=== PATIENT | female | born 1955 | race Asian ===

== ENCOUNTER 2017-10-27 06:19 | Day surgery (SDC) | payer OTHER ==
[2017-10-27] MEDS: BUPIVACAINE 0.25% (MPF) 30 ML INJ INJ
[2017-10-27] MEDS ORDERED: CEFAZOLIN 2 GM/50 ML (PMX) 50 ML IVPB (07:00)
[2017-10-27] MEDS ORDERED: PROPOFOL 200 MG INJ (07:00)
[2017-10-27] MEDS ORDERED: SOD CHLORIDE 0.9% 1,000 ML IV (07:00)
[2017-10-27] MEDS ORDERED: FENTAnyl 50 MCG/ML VIAL IV ×2 (09:00)
[2017-10-27] MEDS ORDERED: DIPHENHYDRAMINE 50 MG INJ IV (09:00)
[2017-10-27] MEDS ORDERED: ONDANSETRON 4 MG INJ IV (09:00)
[2017-10-27] MEDS ORDERED: HYDROmorphONE 1 MG/5 ML IV SYRINGE IV ×2 (09:00)
[2017-10-27] MEDS ORDERED: MEPERIDINE 25 MG INJ IV (09:00)
[2017-10-27] MEDS ORDERED: ALBUTEROL 0.083% (NEB) 2.5 MG/3 ML AMP HHN (09:00)
[2017-10-27] MEDS ORDERED: ROPIVACAINE 0.5 % 30 ML VIAL (09:20)
[2017-10-27] MEDS ORDERED: FENTAnyl 50 MCG/ML VIAL (09:20)
[2017-10-27] MEDS ORDERED: CEFAZOLIN 1 GM INJ (10:05)
[2017-10-27] MEDS ORDERED: SUCCINYLCHOLINE CHLORIDE 100 MG/5 ML SYG IV (10:05)
[2017-10-27] MEDS ORDERED: PROPOFOL 20 ML (10:05)
[2017-10-27] MEDS ORDERED: LIDOCAINE 100 MG SYRINGE (10:05)
[2017-10-27] MEDS ORDERED: SUGAMMADEX SODIUM 200 MG/2 ML VIAL IV (10:05)
[2017-10-27] MEDS ORDERED: ROCURONIUM 50 MG INJ (10:05)
[2017-10-27] MEDS: METOCLOPRAMIDE 10 MG INJ IV (10:53)
[2017-10-27] MEDS: HYDROmorphONE 1 MG/5 ML IV SYRINGE IV (10:54)
[2017-10-27] MEDS: HYDROCODONE/APAP (5/325) TAB PO (12:33)
== END 2017-10-27 12:50 | disposition home or self-care (01) ==
LOC: SDS 06:19
DX: K80.10 Calculus of gallbladder with chronic cholecystitis without obstruction (principal)
CPT/HCPCS: 47562; 88304